=== PATIENT | male | born 1950 | race Caucasian/White ===

== ENCOUNTER → 2020-05-03 | Outpatient (CLI) | payer MEDICARE, OTHER ==
[2020-05-03 10:40] LABS: HEMOGLOBIN 14.8 gm/dl (14.0-17.5); RED BLOOD COUNT 4.19 M/UL (4.20-5.50); WHITE BLOOD COUNT 4.9 K/UL (4.5-11.0)
[2020-05-03 10:54] LABS: BUN/CREATININE RATIO 20 (0-10)
[2020-05-04 08:14] LABS: THYROXINE (T4) 4.6 ug/dL (4.5-12.0)
== END ==
LOC: LAB 09:56
PROVIDERS: Nurse Practitioner
DX: Z12.5 Encounter for screening for malignant neoplasm of prostate (principal); I10 Essential (primary) hypertension; E78.5 Hyperlipidemia, unspecified
CPT/HCPCS: 36415; 80053; 80061; 84436; 84443; 84480; 85025; G0103